=== PATIENT | male | born 1965 | race Caucasian/White ===

== ENCOUNTER 2020-11-01 07:47 | Outpatient (CLI) | payer BC, SELFPAY ==
[2020-11-01 08:17] LABS: Hematocrit 41.1 % (42.0-52.0); Hemoglobin 14.3 g/dL (14.0-18.0); Mean Corpuscular HGB Conc 34.8 g/dl (32-36); Mean Corpuscular Hemoglobin 29.6 pg (26-34); Mean Corpuscular Volume 85.1 fl (80-100); Mean Platelet Volume 9.2 fl (7.4-10.4); Platelet Count Result 230 k/mm3 (150-375); Red Blood Count 4.83 M/mm3 (4.6-6.20); Red Cell Distribution Width 12.6 % (11.5-14.5)
[2020-11-01 08:33] LABS: Anion Gap 5 mmol/L (8-16); Blood Urea Nitrogen 11 mg/dL (9-20); Calcium 9.1 mg/dL (8.4-10.2); Carbon Dioxide 31 mmol/L (22-30); Chloride 103 mmol/L (98-107); Cholesterol 180 mg/dL (0-200); Estimated Glomerular Filt Rate > 60; Glucose 106 mg/dL (75-110); HDL Direct 46 mg/dL; Sodium 139 mmol/L (137-145); Triglycerides 91 mg/dL (<150)
[2020-11-01 08:44] LABS: LDL Cholesterol Direct 112 mg/dL
[2020-11-01 09:03] LABS: Prostate Specific Antigen 2.1 ng/mL (< OR = 4.0)
== END 2020-11-01 07:48 | disposition home or self-care (01) ==
PROVIDERS: PCP Family Medicine; Visit Provider Physician Assistant Medical
DX: Z13.1 Encounter for screening for diabetes mellitus (principal); Z12.5 Encounter for screening for malignant neoplasm of prostate; Z13.220 Encounter for screening for lipoid disorders; D53.9 Nutritional anemia, unspecified
CPT/HCPCS: 36415; 80048; 80061; 84153; 85027; G0103

== ENCOUNTER 2021-02-05 07:55 | Outpatient (CLI) | payer BC, SELFPAY ==
[2021-02-05 08:41] LABS: Alanine Aminotransferase 23 U/L (4-50); Cholesterol 108 mg/dL (0-200); Creatine Kinase 138 U/L (55-170); HDL Direct 49 mg/dL; Triglycerides 66 mg/dL (<150)
[2021-02-05 08:52] LABS: LDL Cholesterol Direct 43 mg/dL
== END 2021-02-05 07:56 | disposition home or self-care (01) ==
LOC: ANHLAB 07:58
PROVIDERS: PCP Family Medicine; Visit Provider Nurse Practitioner Family
DX: E78.5 Hyperlipidemia, unspecified (principal)
CPT/HCPCS: 36415; 80061; 82550; 84460

== ENCOUNTER 2022-10-07 08:14 | Outpatient (CLI) | payer OTHER, SELFPAY ==
[2022-10-07 08:27] LABS: Basophils Absolute Auto 0.1 K/mm3 (0.0-0.1); Eosinophils Absolute Auto 0.1 K/mm3 (0-0.3); Eosinophils Percent Auto 1.6 % (0-4.4); Hematocrit 43.7 % (42.0-52.0); Hemoglobin 14.7 g/dL (14.0-18.0); Immature Granulocyte Absolute 0.02 K/mm3 (0.00-0.031); Immature Granulocyte Percent A 0.3 % (0-0.5); Lymphocytes Absolute Auto 2.67 K/mm3 (0.9-3.2); Lymphocytes Percent Auto 39.7 % (18.3-44.2); Mean Corpuscular HGB Conc 33.6 g/dl (32-36); Mean Corpuscular Hemoglobin 29.2 pg (26-34); Mean Corpuscular Volume 86.7 fl (80-100); Mean Platelet Volume 9.2 fl (7.4-10.4); Monocytes Absolute Auto 0.5 K/mm3 (0.1-0.6); Monocytes Percent Auto 7.1 % (2.6-8.5); Neutrophils Absolute Auto 3.4 K/mm3 (1.3-6.7); Neutrophils Percent Auto 50.3 % (45.5-73.1); Platelet Count Result 221 k/mm3 (150-375); Red Blood Count 5.04 M/mm3 (4.6-6.20); Red Cell Distribution Width 12.7 % (11.5-14.5); White Blood Count 6.7 K/mm3 (4.5-10.0)
[2022-10-07 08:45] LABS: Alanine Aminotransferase 28 U/L (6-50); Albumin Level 4.6 g/dL (3.5-5.1); Alkaline Phosphatase 64 U/L (38-126); Anion Gap 8 mmol/L (8-16); Aspartate Amino Transferase 31 U/L (17-59); Bilirubin,Total 1.9 mg/dL (0.2-1.3); Blood Urea Nitrogen 12 mg/dL (9-20); Calcium 9.2 mg/dL (8.4-10.2); Carbon Dioxide 30 mmol/L (22-30); Chloride 104 mmol/L (98-107); Cholesterol 108 mg/dL (0-200); Estimated Glomerular Filt Rate > 60; Glucose 111 mg/dL (65-110); HDL Direct 44 mg/dL; Potassium 4.3 mmol/L (3.4-5.0); Sodium 142 mmol/L (137-145); Triglycerides 74 mg/dL (<150)
[2022-10-07 08:56] LABS: LDL Cholesterol Direct 46 mg/dL
[2022-10-07 09:15] LABS: Prostate Specific Antigen 2.1 ng/mL (< OR = 4.0)
== END 2022-10-07 08:15 | disposition home or self-care (01) ==
LOC: ANHLAB 08:16
PROVIDERS: PCP Family Medicine; Visit Provider Nurse Practitioner Family
DX: D53.9 Nutritional anemia, unspecified (principal); E78.5 Hyperlipidemia, unspecified; Z12.5 Encounter for screening for malignant neoplasm of prostate; Z13.29 Encounter for screening for other suspected endocrine disorder
CPT/HCPCS: 36415; 80053; 80061; 84153; 84443; 85025; G0103

== ENCOUNTER 2022-11-04 08:44 | Outpatient (CLI) | payer OTHER, SELFPAY ==
[2022-11-04 09:25] LABS: Alanine Aminotransferase 32 U/L (6-50); Albumin Level 4.7 g/dL (3.5-5.1); Alkaline Phosphatase 64 U/L (38-126); Aspartate Amino Transferase 32 U/L (17-59); Bilirubin,Total 2.5 mg/dL (0.2-1.3)
== END 2022-11-04 08:45 | disposition home or self-care (01) ==
LOC: ANHLAB 08:46
PROVIDERS: PCP Family Medicine; Visit Provider Nurse Practitioner Family
DX: R17 Unspecified jaundice (principal)
CPT/HCPCS: 36415; 80076

== ENCOUNTER 2022-12-01 00:16 | Day surgery (SDC) | payer OTHER, SELFPAY ==
[2022-11-15 15:10] VITALS: BMI 26.6
--- NOTE | 2022-11-30 13:48 | P.PNAN_ITS ---
Anes - Initial Pre Proc Eval Procedure: Operation Date: 12/01/22 09:00 Proposed Procedures p Esophagogastroduodenoscopy EGD - Nicola Holland MD Date/Time: 11/30/22 13:48 Surgeon: Nicola Holland MD Pre Op Diagnosis: dysphagia Patient Data Age: 57 Gender: M Height: 1.83 m Weight: 89 kg Allergies Allergy/AdvReac Type Severity Reaction Status Date / Time Penicillins Allergy Unknown Unknown Verified 12/01/22 07:44 Home Medications Medication Instructions Recorded Confirmed Type famotidine 20 mg tablet (Pepcid) 20 mg PO QHS 10/20/22 12/01/22 History rosuvastatin 20 mg tablet 20 mg PO DAILY 11/15/22 12/01/22 History Patient hx anesthesia problems: none Family hx anesthesia problems: none Results Review: All pre-operative results and documents have been reviewed as part of the pre- operative evaluation. [facility] Past Medical History Medical History (Updated 11/30/22 @ 13:49 by Ortega Yun DO) BMI 26.0-26.9,adult BMI 27.0-27.9,adult Dysphagia GERD (gastroesophageal reflux disease) Hyperlipidemia Family History Family History Mother Family history of type 2 diabetes mellitus Father No problems noted. 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 Informed Consent: The patient's anesthetic plan and its attendant risks and benefits were discussed with the patient/family/POA. Questions were solicited and answers provided to the satisfaction of the patient/family/POA.
--- NOTE | 2022-11-30 13:55 | P.HP_ITS ---
History of Present Illness History of Present Illness Consent: Risks, benefits, and alternatives have been discussed and questions answered. Patient agrees to proceed with procedure. Chief complaint: dysphagia Narrative: Dagoberto Alexander is a 57 year old male Referred because of difficulty with swallowing. For up to 20 years he has had food hang up on the way down. It is usually in the mid chest he feels that solid food will get stuck. Sometimes this will be there for up to 20 minutes. Review of Systems Review of Systems: All systems reviewed & are unremarkable except as noted in HPI and below PMFSH Past Medical History Medical History BMI 26.0-26.9,adult BMI 27.0-27.9,adult Dysphagia GERD (gastroesophageal reflux disease) Hyperlipidemia Family History Family History Mother Family history of type 2 diabetes mellitus Father No problems noted. 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 Gender identity (if verbalized by the patient): Male Spiritual care concerns: No Meds Home Medications and Allergies Home Medications Medication Instructions Recorded Confirmed Type famotidine 20 mg tablet (Pepcid) 20 mg PO QHS 10/20/22 12/01/22 History rosuvastatin 20 mg tablet 20 mg PO DAILY 11/15/22 12/01/22 History Allergies Allergy/AdvReac Type Severity Reaction Status Date / Time Penicillins Allergy Unknown Unknown Verified 12/01/22 07:44 Exam Const: General: alert Orientation/consciousness: patient oriented x3 Resp: Auscultation: clear to auscultation bilaterally Cardio: Rhythm: regular rhythm GI: GI Palp: Yes Soft to palpation and No Tenderness to palpation present (GI) Neuro: General: patient oriented x3 Assessment and Plan Assessment and plan (1) Dysphagia: Code(s): R13.10 - Dysphagia, unspecified Status: Acute Assessment and Plan: EGD with possible biopsy or dilatation or cautery.
[2022-12-01 07:45] VITALS: BP 131/71; PULSE 61; RESP 16; TEMP 35.9; O2SAT 100
[2022-12-01] MEDS: LACTATED RINGERS 1,000 ML 150 ML IV CONT (07:55)
[2022-12-01 09:15] VITALS: BP 116/66; PULSE 57; RESP 13; O2SAT 100
[2022-12-01 09:25] VITALS: BP 122/68; PULSE 62; RESP 21; O2SAT 99
[2022-12-01 09:35] VITALS: BP 112/68; PULSE 63; RESP 23; O2SAT 100
== END 2022-12-01 09:43 | disposition home or self-care (01) ==
PROVIDERS: PCP Family Medicine; Visit Provider Internal Medicine Gastroenterology
PROC: 0DJ08ZZ Inspection of Upper Intestinal Tract, Via Natural or Artificial Opening Endoscopic (ICD-10-PCS; CPT 43235; principal; 2022-12-01 09:00)
DX: R13.10 Dysphagia, unspecified (principal); K22.2 Esophageal obstruction; K21.9 Gastro-esophageal reflux disease without esophagitis; E78.5 Hyperlipidemia, unspecified
CPT/HCPCS: 43239; 43249; 88305; C1726; J2704; J7120

== ENCOUNTER 2022-12-23 10:09 | Outpatient (CLI) | payer OTHER, SELFPAY ==
[2022-12-23 11:03] LABS: Alanine Aminotransferase 31 U/L (6-50); Albumin Level 4.6 g/dL (3.5-5.1); Alkaline Phosphatase 65 U/L (38-126); Aspartate Amino Transferase 32 U/L (17-59); Bilirubin,Total 1.6 mg/dL (0.2-1.3)
== END 2022-12-23 10:10 | disposition home or self-care (01) ==
LOC: ANHLAB 10:11
PROVIDERS: PCP Family Medicine; Visit Provider Nurse Practitioner Family
DX: R17 Unspecified jaundice (principal)
CPT/HCPCS: 36415; 80076

== ENCOUNTER 2023-01-17 00:18 | Day surgery (SDC) | payer OTHER, SELFPAY ==
[2022-12-29 15:00] VITALS: BMI 26.6
--- NOTE | 2023-01-16 15:08 | P.HP_ITS ---
History of Present Illness History of Present Illness Consent: Risks, benefits, and alternatives have been discussed and questions answered. Patient agrees to proceed with procedure. Chief complaint: esophageal stricture Narrative: Dagoberto Alexander is a 57 year old male with dysphagia for solid foods. He has had difficulty swallowing for 20 years or so. Six weeks ago he I performed an EGD that revealed a severe stricture at the distal esophagus. I was able to dilated up to 16.5 mm. Biopsies were negative for eosinophilic esophagitis. He returns now for further treatment. He has noticed slight improvement in swallowing. Review of Systems Review of Systems: All systems reviewed & are unremarkable except as noted in HPI and below PMFSH Past Medical History Medical History BMI 26.0-26.9,adult BMI 27.0-27.9,adult Dysphagia GERD (gastroesophageal reflux disease) Hyperlipidemia Family History Family History Mother Family history of type 2 diabetes mellitus Father No problems noted. 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 Gender identity (if verbalized by the patient): Male Spiritual care concerns: No Meds Home Medications and Allergies Home Medications Medication Instructions Recorded Confirmed Type rosuvastatin 20 mg tablet 20 mg PO DAILY 11/15/22 12/29/22 History pantoprazole 40 mg tablet,delayed 40 mg PO QAM #30 tabs 12/01/22 12/29/22 Rx release Allergies Allergy/AdvReac Type Severity Reaction Status Date / Time Penicillins Allergy Unknown Unknown Verified 12/29/22 14:58 Exam Const: General: alert Orientation/consciousness: patient oriented x3 Resp: Auscultation: clear to auscultation bilaterally Cardio: Rhythm: regular rhythm GI: GI Palp: Yes Soft to palpation and No Tenderness to palpation present (GI) Neuro: General: patient oriented x3 Assessment and Plan Assessment and plan (1) Esophageal stricture: Code(s): K22.2 - Esophageal obstruction Status: Acute Assessment and Plan: EGD with possible biopsy or dilatation or cautery.
[2023-01-17 07:52] VITALS: BP 130/83; PULSE 60; RESP 18; TEMP 36.4; O2SAT 100; BMI 26.9
--- NOTE | 2023-01-17 08:02 | WPDANESEPPF ---
Anes - Initial Pre Proc Eval Procedure: Operation Date: 01/17/23 09:00 Proposed Procedures p Esophagogastroduodenoscopy - Nicola Holland MD Date/Time: 01/17/23 08:02 Surgeon: Nicola Holland MD Pre Op Diagnosis: esophageal stricture Patient Data Age: 57 Gender: M Height: 1.83 m Weight: 89.9 kg Last Vital Signs Temp 97.5 F L 01/17/23 07:52 Pulse 60 01/17/23 07:52 Resp 18 01/17/23 07:52 BP 130/83 01/17/23 07:52 Pulse Ox 100 01/17/23 07:52 O2 Del Method Room Air 01/17/23 07:52 Allergies Allergy/AdvReac Type Severity Reaction Status Date / Time Penicillins Allergy Unknown Unknown Verified 12/29/22 14:58 Home Medications Medication Instructions Recorded Confirmed Type rosuvastatin 20 mg tablet 20 mg PO DAILY 11/15/22 12/29/22 History pantoprazole 40 mg tablet,delayed 40 mg PO QAM #30 tabs 12/01/22 12/29/22 Rx release Patient hx anesthesia problems: none Family hx anesthesia problems: none Results Review: All pre-operative results and documents have been reviewed as part of the pre-operative evaluation. [facility] Past Medical History Medical History BMI 26.0-26.9,adult BMI 27.0-27.9,adult Dysphagia GERD (gastroesophageal reflux disease) Hyperlipidemia Family History Family History Mother Family history of type 2 diabetes mellitus Father No problems noted. 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 Informed Consent: The patient's anesthetic plan and its attendant risks and benefits were discussed with the patient/family/POA. Questions were solicited and answers provided to the satisfaction of the patient/family/POA.
[2023-01-17] MEDS: LACTATED RINGERS 1,000 ML 150 ML IV CONT (08:03)
[2023-01-17 08:50] VITALS: BP 109/58; PULSE 62; RESP 16; O2SAT 96
[2023-01-17 09:00] VITALS: BP 116/71; PULSE 64; RESP 18; O2SAT 98
[2023-01-17 09:10] VITALS: BP 120/72; PULSE 66; RESP 18; O2SAT 99
== END 2023-01-17 09:16 | disposition home or self-care (01) ==
PROVIDERS: PCP Family Medicine; Visit Provider Internal Medicine Gastroenterology
PROC: 0DJ08ZZ Inspection of Upper Intestinal Tract, Via Natural or Artificial Opening Endoscopic (ICD-10-PCS; CPT 43235; principal; 2023-01-17 09:00)
DX: K22.2 Esophageal obstruction (principal); K21.9 Gastro-esophageal reflux disease without esophagitis; E78.5 Hyperlipidemia, unspecified
CPT/HCPCS: 43249; J2704; J7120

== ENCOUNTER 2024-01-12 09:20 | Outpatient (CLI) | payer OTHER, SELFPAY ==
[2024-01-12 09:32] LABS: Basophils Absolute Auto 0.1 K/mm3 (0.0-0.1); Basophils Percent Auto 0.9 % (0.2-1.2); Eosinophils Absolute Auto 0.1 K/mm3 (0-0.3); Eosinophils Percent Auto 1.8 % (0-4.4); Hematocrit 42.2 % (42.0-52.0); Hemoglobin 14.2 g/dL (14.0-18.0); Immature Granulocyte Absolute 0.02 K/mm3 (0.00-0.031); Immature Granulocyte Percent A 0.4 % (0-0.5); Lymphocytes Absolute Auto 2.03 K/mm3 (0.9-3.2); Lymphocytes Percent Auto 36.9 % (18.3-44.2); Mean Corpuscular HGB Conc 33.6 g/dl (32-36); Mean Corpuscular Hemoglobin 28.6 pg (26-34); Mean Corpuscular Volume 85.1 fl (80-100); Monocytes Absolute Auto 0.5 K/mm3 (0.1-0.6); Monocytes Percent Auto 8.2 % (2.6-8.5); Neutrophils Absolute Auto 2.9 K/mm3 (1.3-6.7); Neutrophils Percent Auto 51.8 % (45.5-73.1); Platelet Count Result 220 k/mm3 (150-375); Red Blood Count 4.96 M/mm3 (4.6-6.20); Red Cell Distribution Width 12.5 % (11.5-14.5); White Blood Count 5.5 K/mm3 (4.5-10.0)
[2024-01-12 10:01] LABS: Alanine Aminotransferase 34 U/L (6-50); Albumin Level 4.4 g/dL (3.5-5.1); Alkaline Phosphatase 72 U/L (38-126); Anion Gap 5 mmol/L (8-16); Aspartate Amino Transferase 35 U/L (17-59); Bilirubin,Total 2.2 mg/dL (0.2-1.3); Blood Urea Nitrogen 11 mg/dL (9-20); Calcium 9.1 mg/dL (8.4-10.2); Carbon Dioxide 27 mmol/L (22-30); Chloride 105 mmol/L (98-107); Cholesterol 112 mg/dL (0-200); Estimated Glomerular Filt Rate > 60; Glucose 120 mg/dL (65-110); HDL Direct 45 mg/dL; Potassium 4.3 mmol/L (3.4-5.0); Sodium 137 mmol/L (137-145); Triglycerides 64 mg/dL (<150)
[2024-01-12 10:12] LABS: LDL Cholesterol Direct 61 mg/dL
[2024-01-12 10:31] LABS: Prostate Specific Antigen 2.6 ng/mL (< OR = 4.0)
[2024-01-15 13:46] LABS: Hemoglobin A1C 6.4 % (<5.7)
== END 2024-01-12 09:21 | disposition home or self-care (01) ==
LOC: ANHLAB 09:22
PROVIDERS: Physician Assistant Medical; PCP Family Medicine; Visit Provider Physician Assistant
DX: K21.9 Gastro-esophageal reflux disease without esophagitis (principal); Z12.5 Encounter for screening for malignant neoplasm of prostate; E78.2 Mixed hyperlipidemia
CPT/HCPCS: 36415; 80053; 80061; 83036; 84153; 84443; 85025; G0103

== ENCOUNTER 2024-04-05 09:18 | Outpatient (CLI) | payer OTHER, SELFPAY | END 2024-04-05 09:19 | disposition home or self-care (01) | LOC: ANHLAB 09:20 | PROVIDERS: PCP Family Medicine; Visit Provider Physician Assistant Medical | DX: R73.03 Prediabetes (principal) | CPT/HCPCS: 36415; 83036 ==

== ENCOUNTER 2024-09-30 08:02 | Outpatient (CLI) | payer OTHER, SELFPAY ==
[2024-09-30 09:20] LABS: Hemoglobin A1C 6.3 % (<5.7)
== END 2024-09-30 08:03 | disposition home or self-care (01) ==
LOC: ANHLAB 08:02
PROVIDERS: PCP Family Medicine; Visit Provider Physician Assistant Medical
DX: R73.03 Prediabetes (principal)
CPT/HCPCS: 36415; 83036

== ENCOUNTER 2025-03-07 08:01 | Outpatient (CLI) | payer OTHER, SELFPAY ==
[2025-03-07 09:07] LABS: Hematocrit 41.4 % (42.0-52.0); Hemoglobin 14.2 g/dL (14.0-18.0); Mean Corpuscular HGB Conc 34.3 g/dl (32-36); Mean Corpuscular Hemoglobin 28.9 pg (26-34); Mean Corpuscular Volume 84.1 fl (80-100); Mean Platelet Volume 9.4 fl (7.4-10.4); Platelet Count Result 239 k/mm3 (150-375); Red Blood Count 4.92 M/mm3 (4.6-6.20); Red Cell Distribution Width 12.5 % (11.5-14.5); White Blood Count 5.5 K/mm3 (4.5-10.0)
[2025-03-07 09:16] LABS: Hemoglobin A1C 6.5 % (<5.7)
[2025-03-07 09:19] LABS: Alanine Aminotransferase 35 U/L (6-50); Albumin Level 4.4 g/dL (3.5-5.1); Alkaline Phosphatase 71 U/L (38-126); Anion Gap 10 mmol/L (4-12); Aspartate Amino Transferase 33 U/L (17-59); Bilirubin,Total 2.5 mg/dL (0.2-1.3); Blood Urea Nitrogen 10 mg/dL (9-20); Carbon Dioxide 29 mmol/L (22-30); Chloride 102 mmol/L (98-107); Cholesterol 127 mg/dL (0-200); Estimated Glomerular Filt Rate > 60; Glucose 105 mg/dL (65-110); HDL Direct 48 mg/dL; Potassium 3.8 mmol/L (3.4-5.0); Sodium 141 mmol/L (137-145); Triglycerides 102 mg/dL (<150)
[2025-03-07 09:30] LABS: LDL Cholesterol Direct 51 mg/dL; MALB Creatinine Ratio 4.2 mg/g (0-30); Microalbumin Urine Random 7.1 mg/L (0-16.7)
[2025-03-07 09:41] LABS: Vitamin D 25 Hydroxy 21.1 ng/mL
== END 2025-03-07 08:02 | disposition home or self-care (01) ==
LOC: ANHLAB 08:04
PROVIDERS: PCP Family Medicine; Visit Provider Nurse Practitioner Family
DX: E78.2 Mixed hyperlipidemia (principal); R73.03 Prediabetes; D53.9 Nutritional anemia, unspecified; E55.9 Vitamin D deficiency, unspecified
CPT/HCPCS: 36415; 80053; 80061; 82043; 82306; 83036; 84443; 85027

== ENCOUNTER 2025-06-06 08:42 | Outpatient (CLI) | payer OTHER, SELFPAY | END 2025-06-06 08:43 | disposition home or self-care (01) | LOC: ANHLAB 08:43 | PROVIDERS: PCP Family Medicine; Visit Provider Nurse Practitioner Family | DX: E55.9 Vitamin D deficiency, unspecified (principal) | CPT/HCPCS: 36415; 82306 ==